=== PATIENT | male | born 1975 | race Caucasian/White ===

== ENCOUNTER 2021-09-13 21:52 | Emergency (ER) | payer BC, OTHER ==
[2021-09-13] MEDS ORDERED: Doxycycline 100 MG Cap PO ONE (22:27)
--- NOTE | 2021-09-13 22:33 | EDM.PDOC ---
ED HPI GENERAL MEDICAL PROBLEM - General Chief Complaint: Wound Recheck Stated Complaint: R FOOT LAC INFECTION Time Seen by Provider: 09/13/21 22:10 Source of Information: Reports: Patient, RN Notes Reviewed History Limitations: Reports: No Limitations - History of Present Illness INITIAL COMMENTS - FREE TEXT/NARRATIVE: Patient is a 46-year-old male who presents to the ER for a wound recheck. States that he was in [place] this last week, hunting deer, when he ended up dropping his dirty hunting knife onto the top of his right foot, this did result in a puncture wound of sorts to the top of his right foot. Appears to be between the first and second digits. There was 1 suture placed for wound management after it was cleaned out he was not given any sort of oral antib iotics. He went about hunting for the next few days, and using a compression type wrap to his foot and elevating it is much as he could. Notes that he drove back to [place] as well, and he took the compressive wrap off and noticed that there was some more swelling and some mild bruising noted to the patient's plantar surface of his foot, and his second and third toe. They became concerned due to the amount of bruising that he was having, with the mild amount of bloody type drainage that he was having, that he could have an infection so they wanted it checked out. He has had no fevers or chills, cough or shortness of breath or any severe nausea/vomiting/diarrhea. Right Foot Pain Score (Numeric/FACES): 2 - Related Data Allergies Allergy/AdvReac Type Severity Reaction Status Date / Time No Known Allergies Allergy Verified 09/13/21 22:14 Home Meds: Home Meds Doxycycline [Vibramycin] 100 mg PO BID 7 Days #14 tab 09/13/21 [Rx] ED ROS GENERAL - Review of Systems Review Of Systems: Comprehensive ROS is negative, except as noted in HPI. ED EXAM, SKIN/RASH Exam: See Below Exam Limited By: No Limitations General Appearance: Alert, WD/WN, No Apparent Distress Respiratory/Chest: No Respiratory Distress, Lungs Clear, Normal Breath Sounds, No Accessory Muscle Use, Chest Non-Tender Cardiovascular: Normal Peripheral Pulses, Regular Rate, Rhythm, No Edema Peripheral Pulses: 2+: Dorsalis Pedis (L), Dorsalis Pedis (R) Extremities: Normal Range of Motion, Normal Capillary Refill Neurological: Alert, Oriented, Normal Cognition, No Motor/Sensory Deficits Psychiatric: Normal Affect, Normal Mood Skin: Warm, Dry, No Rash, Ecchymosis (Noted to the plantar surface of the patient's second and third toe, and the plantar surface of the patient's right foot very mildly), Wound/Incision (About a 1 cm wound to the patient's top of his right foot, with [address] No obvious purulent drainage coming from the wound.) Course - Vital Signs Last Recorded V/S: Last Vital Signs Temp 97.6 F 09/13/21 22:05 Pulse 72 09/13/21 22:05 Resp 18 09/13/21 22:05 BP 159/99 H 09/13/21 22:05 Pulse Ox 99 09/13/21 22:05 - Orders/Labs/Meds Meds: Medications Discontinued Medications Generic Name Dose Route Start Last Admin Trade Name Freq PRN Reason Stop Dose Admin Doxycycline Hyclate 100 mg 09/13/21 22:27 Doxycycline 100 Mg Cap PO 09/13/21 22:28 ONETIME ONE - Re-Assessments/Exams Free Text/Narrative Re-Assessment/Exam: 09/13/21 22:36 Patient presents to the ER for wound recheck. Although there is no purulent drainage coming from the wound, due to him having inflicted the wound by a dirty hunting knife, and this being more of a puncture or deep wound go ahead and start him on some antibiotics. I did explain to them, that the bruising could be difficult due to the tissues healing. They seemed reassured by this, I did teach them on signs of infection and they verbalized understanding. Departure - Departure Time of Disposition: 22:28 Disposition: Home, Self-Care 01 Condition: Good Clinical Impression: Puncture wound of right foot excluding toes with infection Qualifiers: Encounter type: initial encounter Qualified Code(s): S91.331A - Puncture wound without foreign body, right foot, initial encounter - Discharge Information *PRESCRIPTION DRUG MONITORING PROGRAM REVIEWED*: No *COPY OF PRESCRIPTION DRUG MONITORING REPORT IN PATIENT FILEMON: No Prescriptions: Doxycycline [Vibramycin] 100 mg PO BID 7 Days #14 tab Instructions: Puncture Wound, [id number], Wound Dehiscence, [id number] Referrals: PCP,None [Primary Care Provider] - Forms: ED Department Discharge Additional Instructions: You were evaluated in the ER today for a wound recheck. Although the bruising on your foot is thought to be normal and physiologic due to your tissues healing, there is some concern for a deeper infection due to you having more of a puncture wound from your hunting knife. Please continue all wound management as directed, to include elevating your foot, soaking your foot, and keeping it clean and dry. You have been started on an antibiotic called doxycycline, you will need to take 1 tablet 2 times a day until gone. Your first dose was given in the ER. This medication was electronically sent [facility]; it does appear as if they are open from 9 AM to 2 PM tomorrow so may go there during this timeframe to parts picker these antibiotics and take as directed. If you should notice any sort of red streaking that runs up your leg, or any sort of foul, malodorous purulent type drainage coming from the wound itself, this would be cause for concern to have the wound rechecked. Do not hesitate to return to the ER at any time if your symptoms should change or worsen. Sepsis Event Note (ED) - Evaluation Sepsis Screening Result: No Definite Risk - Focused Exam Vital Signs: Vital Signs Temp Pulse Resp BP Pulse Ox 09/13/21 22:05 97.6 F 72 18 159/99 H 99
== END 2021-09-13 22:42 | disposition home or self-care (01) ==
LOC: JD.ED 21:52
DX: S91.331A Puncture wound without foreign body, right foot, initial encounter (principal); W26.0XXA Contact with knife, initial encounter
CPT/HCPCS: 99282; A9270; 99283